=== PATIENT | male | born 1990 | race Hispanic/Latino ===

== ENCOUNTER 2025-06-09 12:56 | Emergency (ER) | payer BC, SELFPAY ==
[2025-06-09 12:57] VITALS: BMI 26.6
[2025-06-09 12:58] VITALS: BP 155/99
[2025-06-09 13:14] VITALS: BP 140/90
[2025-06-09 13:30] LABS: Hematocrit 43.1 % (39.0-52.0); Hemoglobin 15.3 g/dL (13.0-18.0); Mean Corp Hgb Conc. 35.5 g/dL (33.0-37.0); Mean Corpuscular Volume 91.9 fL (80.0-94.0); Nucleated Red Blood Cells % 0 % (-); Platelet Count 252 10^3/uL (130-400); Red Cell Dist. Width 11.7 % (11.5-14.5)
[2025-06-09] MEDS: NSS 500 IV (13:45)
[2025-06-09 14:00] VITALS: BP 128/81
[2025-06-09 14:06] LABS: Blood Urea Nitrogen 17 mg/dl (9-20); Calcium 9.4 mg/dl (8.4-10.2); Carbon Dioxide 27 mmol/L (22-30); Chloride 104 mmol/L (98-107); Estimated Creatinine Clearance 125 ml/min; Glucose 138 mg/dl (70-99); Potassium 4.3 mmol/L (3.5-5.1); Sodium 140 mmol/L (135-145); eGFR > 60.00
[2025-06-09 14:56] VITALS: BP 128/81
[2025-06-09 15:00] VITALS: BP 125/90
--- NOTE | 2025-06-09 15:44 | CON.NEURO ---
Neuro Assessment/Plan
Assessment
#Post coital headache
CTA head and neck done within 6 hours of headache. Negative for SAH and RCVS and dissection. DUARTE resolved. No residual deficits. technically the post-coital headache requires 2 episodes for the diagnosis, but this episode could be first time.
Plan
- No further work-up from neurologic perspective
- discussed prevention if this continue with either indomethacin or propranolol. doesn't require these at this time.
Consultation
Order
Date of Consultation: 06/09/25
Requesting Provider:
Reason for Consult: Headache
Subjective/Objective
Subjective Data
Date of Service: June 09, 2025
HPI: 34 y.o. male w/ no significant PMH presenting for worst headache of life. He was having sex at 11:30 and at the time of ejaculation developed the worst headache of life. It was centered in the front of his head and was very intense. The pain
was very intense. The severe pain lasted about a minute. He took 1250mg tylenol. The pain has subsided, but he feels fatigued. No focal weakness or other deficits. He hasn't had an episode like this before.
PMH: None
PSH: None
FH: No family history of post-coital headache
Allergies: NKDA
Meds: None
Social:
Smoking: never
Alcohol: socially
Drugs: Socially
Works at as orthopedist
Objective Data
Vital Signs
Temp Pulse Resp BP Pulse Ox
36.9 C 60 19 125/90 92
06/09/25 12:58 06/09/25 15:00 06/09/25 15:00 06/09/25 15:00 06/09/25 15:00
Lab Results
06/09/25 13:20
06/09/25 13:20
Sodium 140 mmol/L (135-145) 06/09/25 13:20
Potassium 4.3 mmol/L (3.5-5.1) 06/09/25 13:20
BUN 17 mg/dl (9-20) 06/09/25 13:20
Glucose 138 mg/dl (70-99) H 06/09/25 13:20
Calcium 9.4 mg/dl (8.4-10.2) 06/09/25 13:20
Patient Allergies
No Known Allergies Allergy (Unverified 06/09/25 12:58)
Review of Systems
-
All other systems: Reviewed and negative
Physical Exam
-
General: Well Developed, Well Nourished and No Apparent Distress
HEENT: Normocephalic, Atraumatic and Anicteric
Skin: Unremarkable
Extremities: No Clubbing
Psych: Unremarkable
Extended Neurological Exam
Mood & Affect: Mood Unremarkable and Affect Unremarkable
Attention Span & Concentration: Awake, Alert and Interactive
Memory: Unremarkable
Tremor: Hand Tremor Absent
Involuntary Movement: None
Speech: Quality Unremarkable, Quantity Unremarkable and Rate of Production Unremarkable
Cranial Nerve II: Left Eye: Pupillary Reactivity Unremarkable, Pupillary Size Unremarkable and Visual [place] Intact
Cranial Nerve II: Right Eye: Pupillary Reactivity Unremarkable and Visual [place] Intact
Cranial Nerves III, IV, : Extraocular Movement: Extraocular Movement Full in all Directions and No Ptosis
Cranial Nerve V: Facial Sensation: Intact to Light Touch
Cranial Nerve VII: Facial Symmetry: Normal Facial Symmetry
Cranial Nerve VIII: Hearing: Unremarkable Hearing to Normal Conversational Volume
Cranial Nerves IX, X: Palate Movement: Palate Elevation Symmetric
Cranial Nerve XI: Shoulder Shrug: Unremarkable
Cranial Nerve XII: Tongue Protusion: Midline
Muscle Strength, Overall: Full Throughout
Muscle Bulk & Tone: Bulk Unremarkable and Tone Unremarkable
Deep Tendon Reflexes: Unremarkable Throughout
Touch Sensation: Unremarkable
Coordination: Uakftl-[id number] Testing Unremarkable
Gait & Station: Unremarkable Arm Swing and Up from Seated Without Problem
Data Reviewed
-
CT-A: Image Reviewed (patent vessels, No LVO, no dilations suggestive of RCVS)
CT Head: Image Reviewed (no acute hemorrhage)
--- NOTE | 2025-06-09 16:21 | ED.GENMED ---
History of Present Illness
General
Chief Complaint: Headache
Source: patient
Exam Limitations: none
Time Seen by Provider: 06/09/25 13:03
History of Present Illness
History of Present Illness:
Sudden diffuse headache postcoital. No nausea or vomiting no neurologic symptoms. Started about an hour and a half prior to ER arrival. No history of same. Feels much improved on ER arrival.
Past History
Past History
ED Past Medical History: None
ED Past Surgical History: None
Review of Systems
Review of Systems
All Other Systems: Not applicable
Neurological: Denies dizzy, weakness or numbness
Phy Exam
Physical Exam
Physical Exam:
GENERAL: Alert and oriented in no apparent distress
EYE: Orbits normal.
NECK: Supple, no significant adenopathy.
ENT: Pharynx without erythema
CARDIAC: Regular rate and rhythm without any obvious murmurs.
LUNGS: Clear breath sounds,normal
ABDOMEN: Soft, without focal tenderness or distention
NEUROLOGICAL: Alert and oriented , grossly non-focal. Cranial nerves II through XII intact. Parented is normal. Speech normal. Gait normal.
SKIN: Warm and dry, no rash or lesion, no discoloration, skin intact.
MUSCULOSKELETAL: No edema,no deformity.Good color
PSYCH: Normal and appropriate interaction.
Course
Orders/Labs/Results
Orders:
Orders
06/09/25 13:03
CT Head & Neck Angio W/wo IV Urgent
Comment:
Reason For Exam: Thunderclap headache during intercourse
IV Insert/Care/Rem.- Treatment PRN
0.9% Sodium Chloride 500 ml [Nss] 500 ml IV BOLUS
Acetaminophen 1000MG/100Ml [Ofirmev] 1,000 mg in 100 ml IV ONCE
Acetaminophen IV Indication:: ED Narcotic Naive Pt-ONCE
06/09/25 13:20
Basic Metabolic Panel Urgent
Complete Blood Count/With Diff Urgent
06/09/25 13:44
Acetaminophen 1000MG/100Ml [Ofirmev] 1,000 mg in 100 ml .ROUTE .STK-MED
Abnormal Lab Results
06/09/25
13:20
WBC 4.4 L 10^3/uL
(4.8-10.8)
RBC 4.69 L 10^6/uL
(4.70-6.10)
MCH 32.6 H pg
(27.0-31.0)
Absolute Lymphs (auto) 0.8 L 10^3/uL
(1.2-3.4)
Lymphocytes % 18.1 L %
(20.5-51.1)
Monocytes % 10.5 H %
(1.7-9.3)
Glucose 138 H mg/dl
(70-99)
06/09/25 13:20
06/09/25 13:20
Vital Signs
Initial and Last Documented VS:
Initial Vital Signs
Temp Pulse Resp BP Pulse Ox
98.4 F 69 16 155/99 98
06/09/25 12:58 06/09/25 12:58 06/09/25 12:58 06/09/25 12:58 06/09/25 12:58
Last Documented Vital Signs
Temp Pulse Resp BP Pulse Ox
98.4 F 58 21 125/90 95
06/09/25 12:58 06/09/25 16:30 06/09/25 16:30 06/09/25 15:00 06/09/25 16:30
*Radiology
Radiology exam reviewed: radiology read reviewed (Negative)
*Pulse Oximetry
SaO2: 92
Oxygen Mode of Delivery: Room air
Patient hypoxic: no
*Critical Care Note
Total Time (30-74mins, 75-104mins- exclusive of procedures): Not Applicable
Update Note
Update Note:
Seen by neurology. Agree medically stable for discharge. Patient nontoxic
ED Attending Note
-
Portions of this chart may have been created with voice recognition software.� Occasional wrong word or��sound alike� substitutions may have occurred due to the inherent limitations of voice recognition software.
Discharge Plan
Departure
Patient Disposition: Home (Routine Discharge)
Date of Disposition: 06/09/25
Time of Disposition: 16:23
Patient with high blood pressure during this ER visit?: Yes
Discharge Problem:
Postcoital headache
Instructions: Headache, Adult (DC), BLOOD PRESSURE
Referrals:
Joe Mills MD [Non-Admitting Privileges, Orthopedics]
Ivan Raygoza MD [Active, Neurology] - Next open appointment
NONE,* [Family Provider, Internal Medicine]
Activity Restrictions/Additional Instructions:
Return immediately with any progression or recurrence of severe headache
To consider neurology follow-up
Interventions
Interventions:
*Risk Screen - Suicide Last Done: 06/09/25 12:58
*General Assessment Last Done: 06/09/25 13:26
*Neglect/Abuse Screening Last Done: 06/09/25 12:58
*ED- Fall Risk Assessment Last Done: 06/09/25 13:26
*ED COVID-19 Vaccine History Last Done: 06/09/25 14:58
*ED Influenza Vaccine History Last Done: 06/09/25 14:58
ED- Neurological Assessment Last Done: 06/09/25 12:57
Discharge Date and Time
Print Language: SYRIAC
[2025-06-09 16:37] VITALS: BP 128/88
== END 2025-06-09 16:38 | disposition home or self-care (01) ==
LOC: EMR 12:56
PROVIDERS: EMERGENCY PHYSICIAN Emergency Medicine
DX: G44.82 Headache associated with sexual activity (principal)
CPT/HCPCS: 99284; 96360; 96361; 70496; 70498; 80048; 85025; Q9967